=== PATIENT | male | born 1940 | race Caucasian/White ===

== ENCOUNTER 2022-09-22 17:48 | Emergency (ER) | payer OTHER ==
[2022-09-22 18:02] VITALS: BMI 28.9
[2022-09-22 21:49] LABS: BASO % 0.5 % (0-2.0); EOS % 2.8 % (0-4.5); HEMATOCRIT 43.7 % (35.4-49); HEMOGLOBIN 14.9 GM/dL (11.7-16.9); LYMPH % 17.3 % (8-40); MCH 29.4 pg (25.7-33.7); MEAN CELL VOLUME 86.4 fl (80-96); MEAN PLT VOLUME 9.3 fl (7.5-11.1); NEUT % 70.4 % (42.8-82.8); PLATELET COUNT 184 10^3/uL (134-434); RBC 5.06 M/mm3 (4.00-5.60); RDW 16.3 % (11.9-15.9); WHITE BLOOD COUNT 7.9 K/mm3 (4.0-10.0)
[2022-09-22 22:20] LABS: ALBUMIN 4.3 g/dl (3.4-5.0); BLOOD UREA NITROGEN 21.9 mg/dL (7-18); CALCIUM 9.6 mg/dL (8.5-10.1)
[2022-09-22 22:23] LABS: CREATININE 1.6 mg/dL (0.55-1.3)
[2022-09-22 22:25] LABS: BILIRUBIN,TOTAL 1.4 mg/dL (0.2-1)
[2022-09-23 00:34] LABS: URINE APPEARANCE CLEAR; URINE BILIRUBIN NEGATIVE (NEGATIVE); URINE COLOR YELLOW; URINE GLUCOSE (UA) 2+ (NEGATIVE); URINE KETONE NEGATIVE (NEGATIVE); URINE LEUK ESTERASE NEGATIVE (NEGATIVE); URINE NITRITE NEGATIVE (NEGATIVE); URINE PROTEIN TRACE (NEGATIVE)
[2022-09-23 01:14] VITALS: BP 144/87; PULSE 76; RESP 16; TEMP 97.4
== END 2022-09-23 01:13 | disposition home or self-care (01) ==
LOC: JER 17:48
DX: R53.1 Weakness (principal); E86.0 Dehydration; R05.9 Cough, unspecified; R09.89 Other specified symptoms and signs involving the circulatory and respiratory systems; J18.1 Lobar pneumonia, unspecified organism; R25.1 Tremor, unspecified; R68.83 Chills (without fever)
CPT/HCPCS: 36415; 70450-TC; 71045-TC-FY; 71250-TC; 80053; 81003; 82550; 85025; 87086; 93005; 93010; 99285-25